=== PATIENT | male | born 1975 | race African-American/Black ===

== ENCOUNTER 2017-03-18 13:22 | Emergency (ER) | payer SELFPAY ==
[~2017-03-18] VITALS: Ht 188 cm; Wt 146.0 kg
[~2017-03-18 13:22] MED LIST: CLON0.3T PO; HYDR-3801 PO; LABE200T2 PO; PENI500T PO; PERC5TAB12 PO
[2017-03-18 13:23] VITALS: BP 173/111; PULSE 20; PULSE 88; RESP 20; TEMP 98.8; O2SAT 98
[2017-03-18] MEDS ORDERED: diphenhydrAMINE HCL 50 MG/ML VIAL IV PUSH ONE (13:45)
[2017-03-18] MEDS: METOCLOPRAMIDE HCL 10 MG/2 ML VIAL IV PUSH ONE ×2 (13:45→14:37)
[2017-03-18] MEDS: DEXAMETHASONE SOD PHOS 20 MG/5 ML VIAL IV PUSH ONE ×2 (13:45→14:36)
[2017-03-18] MEDS ORDERED: SODIUM CHLORIDE 0.9% FLUSH 10 ML FLUSH IVF PRN (13:45)
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
[2017-03-18 14:43] LABS: BASOPHIL # 0.1 TH/MM3 (0-0.2); EOSINOPHIL # 0.3 TH/MM3 (0-0.4); EOSINOPHIL % 4.5 % (0.0-4.0); HEMATOCRIT 46.4 % (39.0-51.0); HEMO FLAGS DIFF FINAL; LYMPH % 33.2 % (9.0-44.0); LYMPHOCYTE # 2.1 TH/MM3 (1.0-4.8); MEAN CELL VOLUME 82.8 FL (80.0-100.0); MEAN CORPUSCULAR HEMOGLOBIN 27.9 PG (27.0-34.0); MEAN CORPUSCULAR HGB CONC 33.7 % (32.0-36.0); MONO % 13.3 % (0.0-8.0); PLATELET COUNT 171 TH/MM3 (150-450); RED CELL DISTRIBUTION WIDTH 13.2 % (11.6-17.2); WHITE BLOOD COUNT 6.3 TH/MM3 (4.0-11.0)
[2017-03-18 14:45] VITALS: BP 140/100; PULSE 82; RESP 14; O2SAT 98
[2017-03-18] MEDS ORDERED: IBUPROFEN 600 MG TAB PO ONE (14:45)
[2017-03-18] MEDS ORDERED: PENICILLIN V POTASSIUM 500 MG TAB PO ONE (14:45)
[2017-03-18] MEDS ORDERED: PENI500T PO (14:48)
[2017-03-18 14:54] LABS: CHLORIDE 104 MEQ/L (98-107); POTASSIUM 4.5 MEQ/L (3.5-5.1); SODIUM (NA) 140 MEQ/L (136-145)
[2017-03-18 14:59] LABS: ANION GAP 5 MEQ/L (5-15); BICARBONATE 30.8 MEQ/L (21.0-32.0); BLOOD UREA NITROGEN 11 MG/DL (7-18)
[2017-03-18 15:02] LABS: ALT (GPT) 25 U/L (12-78); AST (GOT) 11 U/L (15-37); GLOMERULAR FILTRATION RATE 68 ML/MIN (>89)
[2017-03-18 15:03] LABS: TOTAL BILIRUBIN ADULT 0.6 MG/DL (0.2-1.0)
[2017-03-18 15:04] LABS: APTT (PATIENT) 26.1 SEC (24.3-30.1)
[2017-03-18 15:05] LABS: ALKALINE PHOSPHATASE 84 U/L (45-117); CREATINE KINASE 110 U/L (39-308)
[2017-03-18 15:17] LABS: CKMB 1.1 NG/ML (0.5-3.6)
--- NOTE | 2017-03-19 07:59 | EKG ---
Date Performed: 03/18/2017 Time Performed: 13:44:08 PTAGE: 41 years EKG: Sinus rhythm INDETERMINATE AXIS MODERATE INTRAVENTRICULAR CONDUCTION DELAY BORDERLINE ECG Since PREVIOUS TRACING , no significant change noted PREVIOUS TRACIN04/25/2016 18.00 DOCTOR: Ghislaine Alcaraz Interpretating Date/Time 03/19/2017 07:59:32
== END 2017-03-18 14:45 | disposition left against medical advice (07) ==
LOC: PHED 13:22
DX: I10 Essential (primary) hypertension (principal); R51 Headache; K08.89 Other specified disorders of teeth and supporting structures; Z79.899 Other long term (current) drug therapy; R61 Generalized hyperhidrosis; Z53.21 Procedure and treatment not carried out due to patient leaving prior to being seen by health care provider; F17.210 Nicotine dependence, cigarettes, uncomplicated
CPT/HCPCS: 80053; 82550; 82552; 83735; 84484; 85025; 85610; 85730; 93005; 96374; 99284; J1200; J1100; J2765

== ENCOUNTER 2017-04-09 13:24 | Emergency (ER) | payer SELFPAY ==
[~2017-04-09] VITALS: Ht 188 cm; Wt 144.8 kg
[~2017-04-09 13:24] MED LIST changes: -HYDR-3801 PO; -PERC5TAB12 PO
[2017-04-09 13:26] VITALS: BP 199/104; PULSE 95; RESP 15; TEMP 98.8; O2SAT 99
[2017-04-09 13:34] VITALS: BP 199/104
[2017-04-09] MEDS ORDERED: oxyCODONE/ACETAMINOPHEN 5 MG/325 MG TAB PO ONE (13:45)
[2017-04-09] MEDS ORDERED: cloNIDine HCL 0.1 MG TAB PO ONE (13:45)
[2017-04-09] MEDS ORDERED: PENICILLIN V POTASSIUM 500 MG TAB PO ONE (13:45)
[2017-04-09] MEDS ORDERED: PERC10TA27 PO (13:52)
[2017-04-09] MEDS ORDERED: CLON0.3T PO (13:52)
[2017-04-09] MEDS ORDERED: PENI500T PO (13:52)
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
[2017-04-09 14:27] VITALS: BP 175/119
[2017-04-09 14:29] VITALS: BP 186/109
== END 2017-04-09 14:54 | disposition home or self-care (01) ==
LOC: PHED 13:24
DX: I10 Essential (primary) hypertension (principal); K08.89 Other specified disorders of teeth and supporting structures; F17.200 Nicotine dependence, unspecified, uncomplicated
CPT/HCPCS: 99284

== ENCOUNTER 2017-04-22 14:26 | Emergency (ER) | payer SELFPAY ==
[~2017-04-22] VITALS: Ht 188 cm; Wt 142.0 kg
[~2017-04-22 14:26] MED LIST changes: +PERC10TA27 PO
[2017-04-22 14:43] VITALS: BP 168/116; PULSE 90; RESP 16; TEMP 98.3; O2SAT 96
[2017-04-22 14:50] VITALS: BP 168/116
[2017-04-22] MEDS ORDERED: ACETAMINOPHEN 325 MG TAB PO ONE (15:00)
[2017-04-22] MEDS ORDERED: cloNIDine HCL 0.3 MG TAB PO ONE (15:00)
[2017-04-22] MEDS ORDERED: CLON0.3T PO (15:36)
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
== END 2017-04-22 16:44 | disposition home or self-care (01) ==
LOC: PHED 14:26
DX: I10 Essential (primary) hypertension (principal); F17.200 Nicotine dependence, unspecified, uncomplicated
CPT/HCPCS: 99283

== ENCOUNTER 2017-05-09 14:36 | Emergency (ER) | payer SELFPAY ==
[~2017-05-09] VITALS: Ht 188 cm; Wt 139.0 kg
[~2017-05-09 14:36] MED LIST changes: -LABE200T2 PO; -PENI500T PO; -PERC10TA27 PO
[2017-05-09 14:39] VITALS: PULSE 84; RESP 16; TEMP 98.1; O2SAT 98
[2017-05-09 15:00] VITALS: BP 208/116; PULSE 82; RESP 18; O2SAT 98
[2017-05-09] MEDS ORDERED: ACETAMINOPHEN 325 MG TAB PO ONE (15:00)
[2017-05-09] MEDS ORDERED: hydrALAZINE HCL 50 MG TAB PO ONE (15:00)
[2017-05-09] MEDS ORDERED: PENI500T PO (15:09)
[2017-05-09] MEDS ORDERED: CLON0.3T PO (15:09)
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
[2017-05-09] MEDS ORDERED: PENICILLIN V POTASSIUM 500 MG TAB PO ONE (15:15)
== END 2017-05-09 15:16 | disposition left against medical advice (07) ==
LOC: PHED 14:36
DX: I16.0 Hypertensive urgency (principal); I10 Essential (primary) hypertension; F17.210 Nicotine dependence, cigarettes, uncomplicated
CPT/HCPCS: 99283

== ENCOUNTER 2017-05-23 11:35 | Emergency (ER) | payer SELFPAY ==
[~2017-05-23] VITALS: Ht 190.5 cm; Wt 139.5 kg
[~2017-05-23 11:35] MED LIST changes: +PENI500T PO
[2017-05-23 11:45] VITALS: BP 198/110; PULSE 78; RESP 20; TEMP 98.5; O2SAT 100
[2017-05-23 11:53] VITALS: BP 206/116
[2017-05-23] MEDS ORDERED: CLON0.3T PO (12:04)
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
[2017-05-23] MEDS ORDERED: cloNIDine HCL 0.1 MG TAB PO ONE (12:15)
== END 2017-05-23 12:18 | disposition left against medical advice (07) ==
LOC: PHED 11:35
DX: I10 Essential (primary) hypertension (principal); F17.200 Nicotine dependence, unspecified, uncomplicated
CPT/HCPCS: 99282

== ENCOUNTER 2017-06-03 16:44 | Emergency (ER) | payer SELFPAY ==
[~2017-06-03] VITALS: Ht 188 cm; Wt 137.0 kg
[2017-06-03 16:51] VITALS: PULSE 71; RESP 16; TEMP 97.9; O2SAT 97
[2017-06-03 17:08] VITALS: BP 165/101; PULSE 71; RESP 18; O2SAT 98
[2017-06-03] MEDS ORDERED: CLON0.3T PO (17:13)
[2017-06-03] MEDS ORDERED: LABE100T2 PO (17:13)
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
== END 2017-06-03 17:38 | disposition home or self-care (01) ==
LOC: PHED 16:44
DX: I10 Essential (primary) hypertension (principal); F17.200 Nicotine dependence, unspecified, uncomplicated
CPT/HCPCS: 99284

== ENCOUNTER 2017-06-20 11:04 | Emergency (ER) | payer SELFPAY ==
[~2017-06-20] VITALS: Ht 188 cm; Wt 138.0 kg
[~2017-06-20 11:04] MED LIST changes: +LABE100T2 PO; -PENI500T PO
[2017-06-20 11:14] VITALS: BP 222/112; PULSE 90; RESP 18; TEMP 98.3; O2SAT 96
[2017-06-20] MEDS ORDERED: PENICILLIN V POTASSIUM 500 MG TAB PO ONE (11:30)
[2017-06-20] MEDS ORDERED: cloNIDine HCL 0.3 MG TAB PO ONE (11:30)
[2017-06-20] MEDS ORDERED: oxyCODONE/ACETAMINOPHEN 5 MG/325 MG TAB PO ONE (11:30)
[2017-06-20] MEDS ORDERED: PERC10TA27 PO (11:40)
[2017-06-20] MEDS ORDERED: PENI500T PO (11:40)
[2017-06-20] MEDS ORDERED: CLON0.3T PO (11:40)
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
[2017-06-20 12:12] VITALS: BP 184/91
== END 2017-06-20 12:18 | disposition home or self-care (01) ==
LOC: PHEFT 11:04
DX: K04.7 Periapical abscess without sinus (principal); I10 Essential (primary) hypertension; R51 Headache; F17.200 Nicotine dependence, unspecified, uncomplicated
CPT/HCPCS: 99284

== ENCOUNTER 2017-07-09 14:13 | Emergency (ER) | payer SELFPAY ==
[~2017-07-09 14:13] MED LIST changes: +PENI500T PO; +PERC10TA27 PO
[2017-07-09 14:19] VITALS: BP 179/89; PULSE 93; RESP 20; TEMP 97.8; O2SAT 100
[2017-07-09] MEDS ORDERED: PROPARACAINE HCL 0.5% OPHT SOLN 15 ML BTL LEFT EYE ONE (14:30)
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
[2017-07-09] MEDS ORDERED: POLY10O EACH EYE (14:32)
[2017-07-09] MEDS ORDERED: CLON0.3T PO (15:18)
[2017-07-09] MEDS ORDERED: ERYTOIN10 LEFT EYE (15:18)
== END 2017-07-09 15:34 | disposition home or self-care (01) ==
LOC: PHEFT 14:13
DX: H44.002 Unspecified purulent endophthalmitis, left eye (principal)
CPT/HCPCS: 99283

== ENCOUNTER 2017-07-16 11:22 | Emergency (ER) | payer SELFPAY ==
[~2017-07-16] VITALS: Ht 188 cm; Wt 138.0 kg
[~2017-07-16 11:22] MED LIST changes: +ERYTOIN10 LEFT EYE; -LABE100T2 PO; -PENI500T PO; -PERC10TA27 PO
[2017-07-16 11:30] VITALS: BP 207/138; PULSE 80; RESP 17; TEMP 98.1; O2SAT 100
[2017-07-16] MEDS ORDERED: PROPARACAINE HCL 0.5% OPHT SOLN 15 ML BTL LEFT EYE ONE (11:45)
[2017-07-16] MEDS ORDERED: ONDANSETRON ODT 4 MG TAB PO/SL ONE (11:45)
[2017-07-16] MEDS ORDERED: cloNIDine HCL 0.1 MG TAB PO ONE (11:45)
[2017-07-16] MEDS ORDERED: HYDROmorphone HCL PF 1 MG/ML VIAL IVS ONE (11:45)
[2017-07-16] MEDS ORDERED: hydrALAZINE HCL 20 MG/ML VIAL IV PUSH ONE (12:00)
[2017-07-16] MEDS ORDERED: ONDANSETRON HCL 4 MG/2 ML VIAL IVP ONE (12:00)
[2017-07-16 12:10] VITALS: BP 185/105; PULSE 74; RESP 16; O2SAT 98
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
[2017-07-16] MEDS ORDERED: HYDROmorphone HCL PF 1 MG/ML VIAL IV PUSH ONE ×2 (12:45→13:00)
[2017-07-16 12:48] VITALS: BP 205/147; PULSE 72; RESP 16; O2SAT 99
[2017-07-16 13:11] VITALS: BP 170/105
[2017-07-16] MEDS ORDERED: HYDROmorphone HCL PF 2 MG/ML VIAL IV ONE (13:15)
[2017-07-16 13:43] VITALS: BP 181/107
[2017-07-16] MEDS ORDERED: BUTA1CAP PO (14:09)
[2017-07-16] MEDS ORDERED: CIPR-9 PO (14:09)
[2017-07-16] MEDS ORDERED: ACYC800T PO (14:12)
--- NOTE | 2017-07-16 14:35 | RADRPT ---
EXAM DATE/TIME: 07/16/2017 13:34 [place] COMPARISON: CT BRAIN W/O CONTRAST, October 03, 2015, 20:33. INDICATIONS : Cephalgia. Left eye pain. RADIATION DOSE: 65.05 CTDIvol (mGy) MEDICAL HISTORY : Hypertension. SURGICAL HISTORY : None. ENCOUNTER: Initial ACUITY: 1 day PAIN SCALE: 7/10 LOCATION: cranial TECHNIQUE: Multiple contiguous axial images were obtained of the head. Using automated exposure control and adj ustment of the mA and/or kV according to patient size, radiation dose was kept as low as reasonably a chievable to obtain optimal diagnostic quality images. DICOM format image data is available electro nically for review and comparison. FINDINGS: CEREBRUM: The ventricles are normal for age. No evidence of midline shift, mass lesion, hemorrhage or acute in farction. No extra-axial fluid collections are seen. POSTERIOR FOSSA: The cerebellum and brainstem are intact. The 4th ventricle is midline. The cerebellopontine angle i s unremarkable. EXTRACRANIAL: The visualized portion of the orbits is intact. SKULL: The calvaria is intact. No evidence of skull fracture. CONCLUSION: 1. No acute intracranial abnormality. Wallace Herron MD on July 16, 2017 at 14:32 Board Certified Radiologist. This report was verified electronically.
[2017-07-16 14:51] VITALS: BP 204/104; PULSE 78; RESP 16; O2SAT 98
== END 2017-07-16 14:56 | disposition home or self-care (01) ==
LOC: PHED 11:22
DX: I10 Essential (primary) hypertension (principal); R51 Headache; H10.9 Unspecified conjunctivitis; F17.200 Nicotine dependence, unspecified, uncomplicated
CPT/HCPCS: 70450; 96374; 96375; 96376; 99285; J0360; J1170; J2405

== ENCOUNTER 2017-07-19 13:25 | Emergency (ER) | payer SELFPAY ==
[~2017-07-19] VITALS: Ht 188 cm; Wt 135.0 kg
[~2017-07-19 13:25] MED LIST changes: +ACYC800T PO; +BUTA1CAP PO; +CIPR-9 PO
[2017-07-19 13:38] VITALS: PULSE 92; RESP 16; TEMP 97.9; O2SAT 100
[2017-07-19 13:49] VITALS: BP 172/83
[2017-07-19] MEDS ORDERED: KETO1SOL3 LEFT EYE (15:21)
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
[2017-07-19] MEDS ORDERED: ACETAMINOPHEN/HYDROcodone 325 MG/7.5 MG TAB PO ONE (16:00)
[2017-07-19] MEDS ORDERED: AUGM875T3 PO (16:01)
[2017-07-19] MEDS ORDERED: CLON0.3T PO (16:01)
== END 2017-07-19 16:22 | disposition home or self-care (01) ==
LOC: PHEFT 13:25
DX: H10.9 Unspecified conjunctivitis (principal); K04.7 Periapical abscess without sinus; I10 Essential (primary) hypertension; F17.200 Nicotine dependence, unspecified, uncomplicated; Z79.899 Other long term (current) drug therapy; Z88.8 Allergy status to other drugs, medicaments and biological substances
CPT/HCPCS: 99284

== ENCOUNTER 2017-07-27 15:48 | Emergency (ER) | payer SELFPAY ==
[~2017-07-27] VITALS: Ht 188 cm; Wt 136.0 kg
[~2017-07-27 15:48] MED LIST changes: -ACYC800T PO; +AUGM875T3 PO; -BUTA1CAP PO; +KETO1SOL3 LEFT EYE
[2017-07-27 15:54] VITALS: BP 188/134; PULSE 96; RESP 16; TEMP 98.7; O2SAT 99
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
[2017-07-27] MEDS ORDERED: PROPARACAINE HCL 0.5% OPHT SOLN 15 ML BTL LEFT EYE ONE (17:00)
[2017-07-27] MEDS ORDERED: cloNIDine HCL 0.1 MG TAB PO ONE (17:00)
[2017-07-27 17:43] VITALS: BP 164/98
[2017-07-27] MEDS ORDERED: ERYTOIN10 LEFT EYE (17:47)
[2017-07-27] MEDS ORDERED: CLON0.3T PO (17:47)
== END 2017-07-27 17:58 | disposition home or self-care (01) ==
LOC: PHED 15:48
DX: I10 Essential (primary) hypertension (principal); H57.12 Ocular pain, left eye; F17.210 Nicotine dependence, cigarettes, uncomplicated; Z76.0 Encounter for issue of repeat prescription
CPT/HCPCS: 99283

== ENCOUNTER 2017-08-03 16:20 | Emergency (ER) | payer SELFPAY ==
[~2017-08-03] VITALS: Ht 188 cm; Wt 134.0 kg
[~2017-08-03 16:20] MED LIST changes: -CIPR-9 PO; -KETO1SOL3 LEFT EYE
[2017-08-03 16:26] VITALS: BP_SYST 137; BP_SYST 143; BP_DIAS 80; BP_DIAS 86; PULSE 94; RESP 17; TEMP 99.3; O2SAT 98
[2017-08-03] MEDS ORDERED: cloNIDine HCL 0.1 MG TAB PO ONE ×2 (19:00→19:15)
[2017-08-03] MEDS ORDERED: CLON0.3T PO (19:08)
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
[2017-08-03 19:24] VITALS: BP 137/89
== END 2017-08-03 19:25 | disposition home or self-care (01) ==
LOC: PHED 16:20
DX: I10 Essential (primary) hypertension (principal); F17.200 Nicotine dependence, unspecified, uncomplicated; Z76.0 Encounter for issue of repeat prescription
CPT/HCPCS: 99281

== ENCOUNTER 2017-08-25 13:21 | Emergency (ER) | payer SELFPAY ==
[~2017-08-25] VITALS: Ht 188 cm; Wt 136.9 kg
[~2017-08-25 13:21] MED LIST changes: -AUGM875T3 PO; -ERYTOIN10 LEFT EYE
[2017-08-25 13:27] VITALS: BP 177/114; PULSE 84; RESP 18; TEMP 99; O2SAT 97
[2017-08-25] MEDS ORDERED: CLON0.3T PO ×2 (13:47→14:08)
[2017-08-25] MEDS ORDERED: NORV2.5T PO (13:47)
[2017-08-25] MEDS ORDERED: cloNIDine HCL 0.1 MG TAB PO ONE (14:00)
[2017-08-25] MEDS ORDERED: AMLO10 PO (14:08)
[2017-08-25] MEDS ORDERED: PENI500T PO (14:08)
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
[2017-08-25 14:24] VITALS: BP 157/104
== END 2017-08-25 14:26 | disposition home or self-care (01) ==
LOC: PHED 13:21
DX: I10 Essential (primary) hypertension (principal); K08.89 Other specified disorders of teeth and supporting structures; F17.210 Nicotine dependence, cigarettes, uncomplicated
CPT/HCPCS: 99283

== ENCOUNTER 2017-09-12 19:22 | Emergency (ER) | payer SELFPAY ==
[~2017-09-12 19:22] MED LIST changes: +AMLO10 PO; +NORV2.5T PO; +PENI500T PO
[2017-09-12 19:24] VITALS: BP 152/101; PULSE 79; RESP 20; TEMP 98.5; O2SAT 98
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
[2017-09-12] MEDS ORDERED: IBUPROFEN 600 MG TAB PO ONE (19:45)
[2017-09-12] MEDS ORDERED: cloNIDine HCL 0.1 MG TAB PO ONE (19:45)
[2017-09-12 20:00] VITALS: BP 142/77; PULSE 77; RESP 18; O2SAT 96
[2017-09-12] MEDS ORDERED: CLON0.3T PO (20:14)
[2017-09-12] MEDS ORDERED: AMLO10TA2 PO (20:14)
== END 2017-09-12 20:19 | disposition home or self-care (01) ==
LOC: PHED 19:22
DX: I10 Essential (primary) hypertension (principal); K08.89 Other specified disorders of teeth and supporting structures; F17.200 Nicotine dependence, unspecified, uncomplicated
CPT/HCPCS: 99283

== ENCOUNTER 2017-09-25 12:59 | Emergency (ER) | payer SELFPAY ==
[~2017-09-25] VITALS: Ht 188 cm; Wt 137.0 kg
[~2017-09-25 12:59] MED LIST changes: +AMLO10TA2 PO; -NORV2.5T PO; -PENI500T PO
[2017-09-25 13:17] VITALS: BP 135/89; PULSE 80; RESP 16; TEMP 98; O2SAT 100
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
[2017-09-25] MEDS ORDERED: CLON0.3T PO (13:50)
[2017-09-25] MEDS ORDERED: AMLO10 PO (13:50)
== END 2017-09-25 13:58 | disposition home or self-care (01) ==
LOC: PHED 12:59
DX: Z76.0 Encounter for issue of repeat prescription (principal); I10 Essential (primary) hypertension; F17.200 Nicotine dependence, unspecified, uncomplicated; Z79.899 Other long term (current) drug therapy; Z88.8 Allergy status to other drugs, medicaments and biological substances
CPT/HCPCS: 99283

== ENCOUNTER 2017-09-30 03:27 | Observation (INO) | payer SELFPAY ==
[~2017-09-30 03:27] MED LIST changes: -AMLO10TA2 PO
[2017-09-30 03:29] VITALS: BP 155/71; PULSE 76; RESP 19; TEMP 98.4; O2SAT 98
[2017-09-30] MEDS ORDERED: SODIUM CHLORIDE 0.9% FLUSH 10 ML FLUSH IVF PRN (04:15)
[2017-09-30] MEDS ORDERED: NITROGLYCERIN 2% OINT 1 GM PACKET TOP ONE (04:15)
[2017-09-30 04:40] VITALS: BP 133/74; PULSE 52; RESP 16; O2SAT 99
--- NOTE | 2017-09-30 04:41 | RADRPT ---
EXAM DATE/TIME: 09/30/2017 04:30 [facility] COMPARISON: No previous studies available for comparison. INDICATIONS : Chest pain. MEDICAL HISTORY : Hypertension. SURGICAL HISTORY : None. ENCOUNTER: Initial ACUITY: 1 day PAIN SCORE: 8/10 LOCATION: Bilateral chest FINDINGS: PA and lateral views of the chest demonstrate the lungs to be symmetrically aerated without evidence of mass, infiltrate or effusion. The cardiomediastinal contours are unremarkable. Osseous structure s are intact. CONCLUSION: No acute disease. Zeyad Robles MD on September 30, 2017 at 4:39 Board Certified Radiologist. This report was verified electronically.
[2017-09-30] MEDS: NITROGLYCERIN 0.4 MG SL 25 TABS/BTL SL SCH ×3 (04:47→04:51)
[2017-09-30 04:51] LABS: AUTOMATED NEUTROPHIL # 4.5 TH/MM3 (1.8-7.7); BASOPHIL % 0.5 % (0.0-2.0); EOSINOPHIL # 0.3 TH/MM3 (0-0.4); EOSINOPHIL % 3.1 % (0.0-4.0); HEMATOCRIT 40.6 % (39.0-51.0); HEMOGLOBIN 14.4 GM/DL (13.0-17.0); LYMPH % 32.2 % (9.0-44.0); LYMPHOCYTE # 2.6 TH/MM3 (1.0-4.8); MEAN CELL VOLUME 76.7 FL (80.0-100.0); MEAN CORPUSCULAR HEMOGLOBIN 27.2 PG (27.0-34.0); MEAN CORPUSCULAR HGB CONC 35.5 % (32.0-36.0); MEAN PLATELET VOLUME 9.7 FL (7.0-11.0); MONOCYTE # 0.7 TH/MM3 (0-0.9); NEUT % 55.2 % (16.0-70.0); PLATELET COUNT 224 TH/MM3 (150-450); RED BLOOD COUNT 5.29 MIL/MM3 (4.50-5.90); RED CELL DISTRIBUTION WIDTH 16.1 % (11.6-17.2); WHITE BLOOD COUNT 8.1 TH/MM3 (4.0-11.0)
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
[2017-09-30 05:12] LABS: ALT (GPT) 22 U/L (12-78)
[2017-09-30 05:15] LABS: INTERNATIONAL NORMALIZED RATIO 1.1 RATIO; PROTHROMBIN TIME - PATIENT 10.8 SEC (9.8-11.6)
[2017-09-30 05:20] LABS: ALBUMIN 3.4 GM/DL (3.4-5.0); ALKALINE PHOSPHATASE 95 U/L (45-117); AST (GOT) 21 U/L (15-37); BICARBONATE 29.9 MEQ/L (21.0-32.0); BLOOD UREA NITROGEN 8 MG/DL (7-18); CALCIUM 8.6 MG/DL (8.5-10.1); CHLORIDE 103 MEQ/L (98-107); CREATININE 1.35 MG/DL (0.60-1.30); GLOMERULAR FILTRATION RATE 71 ML/MIN (>89); GLUCOSE,RANDOM 155 MG/DL (74-106); MAGNESIUM 1.9 MG/DL (1.5-2.5); SODIUM (NA) 138 MEQ/L (136-145); TOTAL BILIRUBIN ADULT 0.5 MG/DL (0.2-1.0); TOTAL PROTEIN 6.8 GM/DL (6.4-8.2); TROPONIN I LESS THAN 0.02 NG/ML (0.02-0.05)
[2017-09-30] MEDS: ASPIRIN 81 MG CHEW TAB CHEW ONE ×2 (05:30→06:21)
[2017-09-30 06:29] VITALS: BP 111/58; PULSE 52; RESP 14; O2SAT 99
[2017-09-30] MEDS ORDERED: SODIUM CHLORIDE 0.9% FLUSH 10 ML FLUSH IV FLUSH PRN (06:45)
[2017-09-30 08:00] VITALS: BP 115/62; PULSE 48; RESP 17; TEMP 98; O2SAT 98
--- NOTE | 2017-09-30 08:42 | HHI.HP ---
HPI Primary Care Physician No Primary Care Physician Chief Complaint Chest pain History of Present Illness This is a 42-year-old male with history of hypertension and tobacco abuse that presents to ED with a complaint of being awoken at 3:00 this morning with a central chest tightness/pressure with shortness of breath. Discomfort radiating to his left arm. He was not nauseous or diaphoretic. His symptoms lasted about an hour and a half. Cannot recall having this in the past. Denies recent illness. Denies fevers or chills. Voices compliance with blood pressure medicine. He really is not aware of his lipid status. Cannot recall prior cardiac workup. Denies chest discomfort at this time. Review of Systems General: Patient denies fevers, chills, and recent travel. HEENT: Patient denies headache, sore throat, difficulty swallowing. Cardiovascular: Has the chest discomfort as mentioned above. Denies sensation of heart beating rapidly or irregularly. No syncope. Denies diaphoresis. Respiratory: He was short of breath. Denies inspirational chest discomfort. Denies coughing wheezing or hemoptysis. GI: Patient denies nausea, vomiting, diarrhea, abdominal pain, bloody stools. Musculoskeletal: Patient denies joint pain or edema. Denies calf pain or edema. Neurovascular: Patient denies numbness, tingling, weakness in extremities. Denies headache. Endocrine: Denies polyuria and polydipsia. Hematologic: Denies easy bruising. Skin: Denies rash or itching. Past Family Social History Allergies: Coded Allergies: lisinopril (Verified Allergy, Severe, angioedema, 09/30/17) Past Medical History Hypertension and tobacco abuse. Not aware of his lipid status. Denies diabetes and known CAD. Past Surgical History Noncontributory. Reported Medications Reported Meds & Active Scripts Active Norvasc (Amlodipine Besylate) 10 Mg Tab 10 Mg PO DAILY Reported Clonidine (Clonidine HCl) 0.3 Mg Tab 0.3 Mg PO TID Active Ordered Medications Current Medications Medications (Trade) Dose Ordered Sig/Sabina Route Start Time Stop Time Status Last Admin (NS Flush) 2 ml UNSCH PRN IVF 09/30/17 04:15 (NS Flush) 2 ml UNSCH PRN IV FLUSH 09/30/17 06:45 (NS Flush) 2 ml BID IV FLUSH 09/30/17 09:00 Family History Denies family history of CAD. Social History Smokes 1 pack of cigarettes daily for approximately 20 years. Denies illicit drug use. Denies alcohol. Physical Exam Vital Signs Vital Signs Date Time Temp Pulse Resp B/P (MAP) Pulse Ox O2 Delivery O2 Flow Rate FiO2 09/30/17 08:00 98.0 48 17 115/62 (79) 98 09/30/17 06:29 52 14 111/58 (75) 99 Nasal Cannula 1.00 09/30/17 04:40 52 16 133/74 (93) 99 Nasal Cannula 1.00 09/30/17 04:40 100 Nasal Cannula 1.00 09/30/17 03:29 98.4 76 19 155/71 (99) 98 Physical Exam GENERAL: This is a well-nourished, well-developed patient, in no apparent distress. Patient speaks in clear complete sentences. Patient is pleasant. HEENT: Head is atraumatic and normocephalic. Neck is supple without lymphadenopathy and trachea is midline. No JVD or carotid bruits. CARDIOVASCULAR: Regular rate and rhythm without murmurs, gallops, or rubs. RESPIRATORY: Clear to auscultation. Breath sounds equal bilaterally. No wheezes , rales, or rhonchi. Chest wall is nontender. No use of accessory muscles. GASTROINTESTINAL: Abdomen is nontender, nondistended. Abdomen soft. No obvious pulsatile mass or bruit. No CVA tenderness. Strong femoral pulses bilaterally. Normal bowel sounds in all quadrants. MUSCULOSKELETAL: Patient is moving upper and lower extremities freely. No calf tenderness or edema, no Homans sign. Strong pulses in upper and lower extremities. NEUROLOGICAL: Patient is alert and oriented. Cranial nerves 2-12 are grossly intact. No focal deficits and speech is clear. SKIN: No rash and turgor is normal. Laboratory Laboratory Tests Test 09/30/17 04:25 09/30/17 08:14 White Blood Count 8.1 Red Blood Count 5.29 Hemoglobin 14.4 Hematocrit 40.6 Mean Corpuscular Volume 76.7 Mean Corpuscular Hemoglobin 27.2 Mean Corpuscular Hemoglobin Concent 35.5 Red Cell Distribution Width 16.1 Platelet Count 224 Mean Platelet Volume 9.7 Neutrophils (%) (Auto) 55.2 Lymphocytes (%) (Auto) 32.2 Monocytes (%) (Auto) 9.0 Eosinophils (%) (Auto) 3.1 Basophils (%) (Auto) 0.5 Neutrophils # (Auto) 4.5 Lymphocytes # (Auto) 2.6 Monocytes # (Auto) 0.7 Eosinophils # (Auto) 0.3 Basophils # (Auto) 0.0 CBC Comment DIFF FINAL Differential Comment Prothrombin Time 10.8 Prothromb Time International Ratio 1.1 Activated Partial Thromboplast Time 28.6 Blood Urea Nitrogen 8 Creatinine 1.35 Random Glucose 155 Total Protein 6.8 Albumin 3.4 Calcium Level 8.6 Magnesium Level 1.9 Alkaline Phosphatase 95 Aspartate Amino Transf (AST/SGOT) 21 Alanine Aminotransferase (ALT/SGPT) 22 Total Bilirubin 0.5 Sodium Level 138 Potassium Level 4.9 Chloride Level 103 Carbon Dioxide Level 29.9 Anion Gap 5 Estimat Glomerular Filtration Rate 71 Total Creatine Kinase 127 Creatine Kinase MB 1.1 Troponin I LESS THAN 0.02 B-Type Natriuretic Peptide 6 Lipase 67 Result Diagram: 09/30/17 0425 09/30/17 0425 Imaging Last 48 hours Impressions Chest X-Ray 09/30/17410 Signed Impressions: Service Date/Time: Saturday, September 30, 2017 04:30 - CONCLUSION: No acute disease. Zeyad Robles MD Course First and second EKG is sinus rhythm without significant ST segment depressions or elevations. Caprini VTE Risk Assessment Caprini VTE Risk Assessment: No/Low Risk (score <= 1) Caprini Risk Assessment Model Point Value = 1 Point Value = 2 Point Value = 3 Point Value = 5 Age 41-60 Minor surgery BMI > 25 kg/m2 Swollen legs Varicose veins or History of unexplained or recurrent spontaneous Oral contraceptives or hormone replacement Sepsis (< 1 month) Serious lung disease, including pneumonia (< 1 month) Abnormal pulmonary function Acute myocardial infarction Congestive heart failure (< 1 month) History of inflammatory bowel disease Medical patient at bed rest Age 61-74 Arthroscopic surgery Major open surgery (> 45 min) Laparoscopic surgery (> 45 min) Malignancy Confined to bed (> 72 hours) Immobilizing plaster cast Central venous access Age >= 75 History of VTE Family history of VTE Factor V Leiden Prothrombin 25090I Lupus anticoagulant Anticardiolipin antibodies Elevated serum homocysteine Heparin-induced thrombocytopenia Other congenital or acquired thrombophilia Stroke (< 1 month) Elective arthroplasty Hip, pelvis, or leg fracture Acute spinal cord injury (< 1 month) Prophylaxis Regimen Total Risk Factor Score Risk Level Prophylaxis Regimen 0-1 Low Early ambulation 2 Moderate Order ONE of the following: *Sequential Compression Device (SCD) *Heparin 5000 units SQ BID 3-4 Higher Order ONE of the following medications: *Heparin 5000 units SQ TID *Enoxaparin/Lovenox 40 mg SQ daily (WT < 150 kg, CrCl > 30 mL/min) *Enoxaparin/Lovenox 30 mg SQ daily (WT < 150 kg, CrCl > 10-29 mL/min) *Enoxaparin/Lovenox 30 mg SQ BID (WT < 150 kg, CrCl > 30 mL/min) AND/OR *Sequential Compression Device (SCD) 5 or more Highest Order ONE of the following medications: *Heparin 5000 units SQ TID (Preferred with Epidurals) *Enoxaparin/Lovenox 40 mg SQ daily (WT < 150 kg, CrCl > 30 mL/min) *Enoxaparin/Lovenox 30 mg SQ daily (WT < 150 kg, CrCl > 10-29 mL/min) *Enoxaparin/Lovenox 30 mg SQ BID (WT < 150 kg, CrCl > 30 mL/min) AND *Sequential Compression Device (SCD) Assessment and Plan Assessment and Plan * Chest pain: Patient was seen by Dr. Shukri Bocanegra of cardiology in the Chest pain center. First and second EKGs are okay. Second troponin is pending. Patient will have a stress test of the second troponin is normal and further plans pending the results of that stress test. Likely be discharged home if the stress test is nonischemic and he is asymptomatic. At that point patient should follow-up with PCP and return to ED for interval issues. He should have a full physical on outpatient basis with PCP and have lipid level checked. Also his glucose levels elevated in the ED at 155. He should have this followed up. Return to ED for interval issues. * Hypertension: Resume medication. * Tobacco abuse: Patient counseled on the importance of smoking cessation. * Hyperglycemia: Patient should have this followed up with his PCP. Patient is stable at this time. He is agreeable to this plan. Payam Saba Sep 30, 2017 08:42
[2017-09-30] MEDS ORDERED: SODIUM CHLORIDE 0.9% FLUSH 10 ML FLUSH IV FLUSH SCH (09:00)
[2017-09-30 09:03] LABS: TROPONIN I LESS THAN 0.02 NG/ML (0.02-0.05)
--- NOTE | 2017-09-30 10:52 | HHI.DCPOC ---
Discharge Care Plan Diagnosis: (1) Chest pain (2) Hypertension (3) Tobacco abuse Goals to Promote Your Health * To prevent worsening of your condition and complications * To maintain your health at the optimal level Directions to Meet Your Goals Take your medications as prescribed Follow your dietary instruction Follow activity as directed Keep your appointments as scheduled Take your immunizations and boosters as scheduled If your symptoms worsen call your PCP, if no PCP go to Urgent Care Center or Emergency Room Smoking is Dangerous to Your Health. Avoid second hand smoke Call the 24-hour hour crisis hotline for domestic abuse at Payam Saba Sep 30, 2017 10:52
--- NOTE | 2017-10-01 18:00 | TR ---
Date Performed: 09/30/2017 Time Performed: 10:31:01 DOCTOR: Ghislaine Alcaraz DRUG LIST: CLINICAL HISTORY: CP R/O ACS REASON FOR TEST: REASON FOR ENDING: OBSERVATION: CONCLUSION: ROD PROTOCOL. NO CP. TEST STOPPED AFTER EXCEEDING GOAL HR SECONDARY TO SOB AND LEG FATIGUE.Maximum TJ=796 % Max HR Achieved=87.0% Maximum NJ=497/82 Total Exercise Time=8:00 COMMENTS: No ischemia
--- NOTE | 2017-10-01 18:03 | EKG ---
Date Performed: 09/30/2017 Time Performed: 07:57:42 PTAGE: 42 years EKG: SINUS BRADYCARDIA MODERATE INTRAVENTRICULAR CONDUCTION DELAY BORDERLINE ECG Since PREVIOUS TRACING , no significant change noted PREVIOUS TRACIN09/30/2017 07.56 DOCTOR: Ghislaine Alcaraz Interpretating Date/Time 10/01/2017 18:01:58
--- NOTE | 2017-10-01 18:04 | EKG ---
Date Performed: 09/30/2017 Time Performed: 04:26:35 PTAGE: 42 years EKG: SINUS BRADYCARDIA WITH SINUS ARRHYTHMIA WITH FIRST DEGREE AV BLOCK MODERATE INTRAVENTRICULA R CONDUCTION DELAY ABNORMAL ECG Since PREVIOUS TRACING , no significant change noted DOCTOR: Ghislaine Alcaraz Interpretating Date/Time 10/01/2017 18:02:35
== END 2017-09-30 15:06 | disposition home or self-care (01) ==
LOC: NEPE 03:27 → NEDA 05:49 → NEDH 06:45
PROVIDERS: ADMIT Internal Medicine Interventional Cardiology; ATTEND Internal Medicine Interventional Cardiology
DX: R07.89 Other chest pain (principal); I10 Essential (primary) hypertension; R73.9 Hyperglycemia, unspecified; R00.1 Bradycardia, unspecified; I45.10 Unspecified right bundle-branch block; R94.31 Abnormal electrocardiogram [ECG] [EKG]; R06.02 Shortness of breath; F17.210 Nicotine dependence, cigarettes, uncomplicated; Z79.899 Other long term (current) drug therapy
CPT/HCPCS: 71046; 80053; 82550; 82552; 83690; 83735; 83880; 84484; 85025; 85610; 85730; 93005; 93017; 99285; G0378

== ENCOUNTER 2017-10-06 12:41 | Emergency (ER) | payer SELFPAY ==
[~2017-10-06] VITALS: Ht 188 cm; Wt 140.3 kg
[2017-10-06 12:47] VITALS: BP 154/72; PULSE 92; RESP 16; TEMP 98.8; O2SAT 97
[2017-10-06 12:50] VITALS: BP 154/72; PULSE 92; RESP 16; TEMP 98.8; O2SAT 97
[2017-10-06] MEDS ORDERED: AMLO10 PO (13:42)
[2017-10-06] MEDS ORDERED: PENI500T PO (13:42)
[2017-10-06] MEDS ORDERED: CLON0.3T PO (13:42)
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
== END 2017-10-06 14:23 | disposition home or self-care (01) ==
LOC: PHED 12:41
DX: I10 Essential (primary) hypertension (principal); K02.9 Dental caries, unspecified; R51 Headache; F17.210 Nicotine dependence, cigarettes, uncomplicated
CPT/HCPCS: 99283

== ENCOUNTER 2017-10-23 18:17 | Emergency (ER) | payer SELFPAY ==
[~2017-10-23] VITALS: Ht 188 cm; Wt 150.2 kg
[~2017-10-23 18:17] MED LIST changes: +PENI500T PO
[2017-10-23 18:22] VITALS: BP 169/88; PULSE 84; RESP 16; TEMP 98.7; O2SAT 97
[2017-10-23] MEDS ORDERED: CLON0.3T PO (19:25)
[2017-10-23] MEDS ORDERED: AMLO10TA2 PO (19:25)
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
[2017-10-23 19:32] VITALS: BP 154/91; PULSE 81; RESP 16; O2SAT 97
== END 2017-10-23 19:40 | disposition home or self-care (01) ==
LOC: PHED 18:17
DX: I10 Essential (primary) hypertension (principal); F17.200 Nicotine dependence, unspecified, uncomplicated; Z76.0 Encounter for issue of repeat prescription; Z88.8 Allergy status to other drugs, medicaments and biological substances; Z79.899 Other long term (current) drug therapy
CPT/HCPCS: 99283

== ENCOUNTER 2017-11-15 13:41 | Emergency (ER) | payer SELFPAY ==
[~2017-11-15] VITALS: Ht 188 cm; Wt 146.3 kg
[~2017-11-15 13:41] MED LIST changes: +AMLO10TA2 PO; -PENI500T PO
[2017-11-15 13:49] VITALS: BP 137/107; PULSE 70; RESP 16; TEMP 98; O2SAT 100
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
[2017-11-15] MEDS ORDERED: AMLO10TA2 PO (14:24)
[2017-11-15] MEDS ORDERED: CLON0.3T PO (14:24)
== END 2017-11-15 14:36 | disposition home or self-care (01) ==
LOC: PHEFT 13:41
DX: Z76.0 Encounter for issue of repeat prescription (principal); I10 Essential (primary) hypertension; F17.200 Nicotine dependence, unspecified, uncomplicated; Z79.899 Other long term (current) drug therapy
CPT/HCPCS: 99281

== ENCOUNTER 2017-12-08 18:20 | Emergency (ER) | payer SELFPAY ==
[~2017-12-08] VITALS: Ht 188 cm; Wt 144.7 kg
[2017-12-08 18:24] VITALS: BP 183/99; PULSE 81; RESP 16; TEMP 98.7; O2SAT 97
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
== END 2017-12-08 20:39 | disposition left against medical advice (07) ==
LOC: PHED 18:20
DX: Z76.5 Malingerer [conscious simulation] (principal); I10 Essential (primary) hypertension; F17.210 Nicotine dependence, cigarettes, uncomplicated
CPT/HCPCS: 99281